=== PATIENT | male | born 1985 | race Caucasian/White ===

== ENCOUNTER 2017-10-02 12:28 | Emergency (ER) | payer OTHER ==
[2017-10-02 14:36] VITALS: BP 139/95
--- NOTE | 2017-10-02 15:28 | UC ---
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 During this time developed 2 febrile illnesses -- one was just fever/chills/sweats without cough or congestion a couple months ago, second one was just prior to returning home and he developed nasal congestion and cough. Now home with who is 10 weeks , requesting Zika testing. was tested by [facility], negative. - History of Current Complaint Chief Complaint: UCGeneralIllness Time Seen by Provider: 10/02/17 15:11 Hx Obtained From: Patient Onset/Duration: Started Weeks Ago Timing: Intermittent Initial Severity: Mild Current Severity: None Pain Intensity: 0 Aggravating Factors: Nothing Alleviating Factors: Nothing Associated Signs and Symptoms: Chills - resolved now Related History: Exposure to: - zika -- in [place] - Allergy/Home Medications Allergies/Adverse Reactions: Allergies Allergy/AdvReac Type Severity Reaction Status Date / Time No Known Allergies Allergy Verified 10/02/17 14:36 PMH/Surg Hx/FS Hx/Imm Hx Previously Healthy: Yes - Surgical History Surgical History: None - Family History Known Family History: Positive: Unknown - Social History Occupation: Unemployed Lives: With Family Alcohol Use: Daily Alcohol Amount: 2 BEERS/DAY Substance Use Type: None Smoking Status (MU): Never Smoked Tobacco Have You Smoked in the Last Year: No - Immunization History Most Recent Tetanus Shot: <5 YEARS ( OF 01/25/16) Review of Systems Constitutional: Fever, Chills Skin: Negative Eyes: Negative ENT: Negative Respiratory: Negative Cardiovascular: Negative Gastrointestinal: Negative Genitourinary: Negative Motor: Negative Neurovascular: Negative Musculoskeletal: Negative Neurological: Negative Psychological: Negative Is Patient Immunocompromised?: No All Other Systems Reviewed And Are Negative: Yes Physical Exam Triage Information Reviewed: Yes Appearance: Well-Appearing, No Pain Distress, Well-Nourished Vital Signs: Initial Vital Signs Temp 98.1 F 10/02/17 14:33 Pulse 65 10/02/17 14:33 Resp 14 10/02/17 14:33 BP 139/95 10/02/17 14:33 Pulse Ox 99 10/02/17 14:33 Vital Signs Reviewed: Yes Eye Exam: Normal Eyes: Positive: Conjunctiva Clear ENT Exam: Normal ENT: Positive: Normal ENT inspection, Hearing grossly normal, Pharynx normal, TMs normal Dental Exam: Normal Neck exam: Normal Respiratory Exam: Normal Respiratory: Positive: Chest non-tender, Lungs clear, Normal breath sounds, No respiratory distress, No accessory muscle use Cardiovascular Exam: Normal Cardiovascular: Positive: RRR, No Murmur Musculoskeletal Exam: Normal Neurological Exam: Normal Neurological: Positive: Alert Psychological Exam: Normal Skin Exam: Normal Course/Dx - Diagnoses Clinic Provider Diagnoses: zika virus exposure. zika testing Discharge - Discharge Plan Condition: Stable Disposition: HOME Patient Education Materials: Zika Virus (ED) Referrals: Ahsan RICHARD,Ihsan Clancy [Primary Care Provider] - Additional Instructions: Tests pending. Please use a condom for any sexual activity unless and until definitive testing is negative for zika testing.
== END 2017-10-02 15:56 | disposition home or self-care (01) ==
LOC: UCEAST 12:28
DX: Z20.828 Contact with and (suspected) exposure to other viral communicable diseases (principal); R09.81 Nasal congestion; R05 Cough; R50.9 Fever, unspecified
CPT/HCPCS: 99211; G0463